=== PATIENT | female | born 2000 | race Caucasian/White ===

== ENCOUNTER 2021-05-11 15:59 | Day surgery (SDC) | payer MEDICAID ==
[2021-05-11] MEDS ORDERED: PROCHLORPERAZINE 10 MG/2 ML VIAL. IVP PRN (16:15)
[2021-05-11] MEDS ORDERED: CITRIC ACID/SODIUM CITRATE 30 ML SOLUTION. PO ONE (16:15)
[2021-05-11] MEDS ORDERED: FAMOTIDINE 20 MG/2 ML VIAL IVP ONE (16:15)
[2021-05-11] MEDS ORDERED: IV RINGERS,LACTATED 1000ML 1,000 ML IV SCH (16:15)
[2021-05-11] MEDS ORDERED: fentaNYL PF VIAL 100 MCG/2 ML VIAL IVP PRN ×2 (16:15)
[2021-05-11] MEDS ORDERED: HYDROmorphone 2 MG/ML VIAL IVP PRN (16:15)
[2021-05-11] MEDS ORDERED: METOCLOPRAMIDE HCL 10 MG/2 ML VIAL. IVP ONE (16:15)
[2021-05-11] MEDS ORDERED: MORPHINE SULFATE 2 MG/ML INJ. IVP PRN (16:15)
--- NOTE | 2021-05-11 16:56 | PDOC1 ---
[employer] H&P Date of Admission: Date of Admission: History of Present Illness: The pt is a 20y who presented to [facility] with sudden onset abd pain. The pt delivered by on 05/03/21 at [facility]. The pain began about 30 min prior to her. In the ER a CBC was found to have a nml WBC of 7.9 and Hgb of 12.5. A CT was performed revealing the followin. Enlarged uterus with thickened endometrial cavity due to the recent status of patient. There is increased blood flow along the right aspect of the uterine fundus which appears to extend into the endometrial cavity, concerning for retained products of conception and possible active extravasation. Correlate with pelvic exam findings and pelvic sonography. 2. Multiple ill-defined peripheral areas of hypodensity within both kidneys. This is not appear to be related to the timing of contrast administration. The possibility of an ascending urinary tract infection is not excluded. Correlate with urinalysis. The pt was transferred to [place] for suction D&C for the retained POC. PMH: Denies PSH: Denies Meds: none All: NKDA OBHx: TSVD x 1 SH: vap, no EtOH FH: noncontributory Medications: Meds: Current Medications Medications (Trade) Dose Ordered Sig/Maria E Route PRN Reason Start Time Stop Time Status Last Admin Dose Admin Metoclopramide HCl (Reglan Vial) 10 mg 1X ONCE IVP 05/11/21 16:15 05/11/21 16:17 DC 05/11/21 16:27 Famotidine (Pepcid Vial) 20 mg 1X ONCE IVP 05/11/21 16:15 05/11/21 16:17 DC 05/11/21 16:27 Citric Acid/ Sodium Citrate (Bicitra) 30 ml 1X ONCE PO 05/11/21 16:15 05/11/21 16:17 DC 05/11/21 16:27 Allergies: Coded Allergies: No Known Drug Allergies (Unverified , 05/11/21) Physical Exam: Vital Signs: Vital Signs Date Time Temp Pulse Resp B/P (MAP) Pulse Ox O2 Delivery O2 Flow Rate FiO2 05/11/21 16:27 98.4 77 13 122/83 98 Room Air 98.4 PE: GENERAL: No apparent distress. Alert and oriented. HEENT: Head normocephalic, atraumatic. NECK: Supple LUNGS: Clear to auscultation. HEART: RRR, S1, S2 present, pulses intact ABDOMEN: Soft, positive bowel sounds. EXTREMITIES: No cyanosis or edema. NEUROLOGIC: Normal speech, normal tone PSYCHIATRIC: Normal affect, normal mood. SKIN: No ulceration. Assessment & Plan: A/P 20y with retained POC 1.) Retained POC placed on scheduled for suction D&C 2.) Hgb 12.5 ELIUD VALLADARES MD May 11, 2021 16:56
[2021-05-11] MEDS ORDERED: fentaNYL PF VIAL 100 MCG/2 ML VIAL ONE (17:28)
[2021-05-11] MEDS ORDERED: DOXYCYCLINE HYCLATE 100 MG in IV DEXTROSE 5% 100ML 100 ML IV ONE (18:00)
[2021-05-11] MEDS ORDERED: OXYC1TAB15 PO (18:07)
[2021-05-11] MEDS ORDERED: IBUP-1060 PO (18:07)
--- NOTE | 2021-05-11 18:15 | PDOC4 ---
OPERATIVE NOTE: PreOp Dx: Retained POC PostOp Dx: same Procedure: Suction D&C Surgeon: Nicky Valladares Anesthesia: LMA EBL: 50 cc Fluids: 600 cc UOP: 15 cc Specimen: POC Complications: None ELIUD VALLADARES MD May 11, 2021 18:15
--- NOTE | 2021-05-11 18:40 | OP ---
DATE OF SURGERY: 05/11/2021 PREOPERATIVE DIAGNOSIS: Retained products of conception. POSTOPERATIVE DIAGNOSIS: Retained products of conception. PROCEDURE: Suction D and C. SURGEON: Jan Cardona MD ANESTHESIA: LMA. ESTIMATED BLOOD LOSS: 50 mL FLUIDS: 600 mL URINE OUTPUT: 15 mL SPECIMENS: Products of conception. COMPLICATIONS: None. DESCRIPTION OF PROCEDURE: The patient was taken to the operating room where LMA was placed without difficulty. The patient was prepped and draped in normal sterile fashion. A speculum was placed in the patient's vagina to visualize the cervix. A single tooth tenaculum was then placed on the anterior lip of the cervix. The uterus was sounded to approximately 8 cm. The cervix was sufficiently dilated to allow for a 7 cm curved suction curette to be placed. The curette was advanced to the fundus and suction was then activated. The curette was rotated until all products of conception were cleared. This occurred with only a couple of passes. With the third pass, only minimal blood was returning. At that point, sharp curetting was performed until gritty texture was felt in all 4 quadrants. Minimal bleeding was noted. At that point, an additional pass with the suction curette was then performed with no tissue returning. At that point, the procedure was terminated. The tenaculum was removed with minimal bleeding at the tenaculum site. Good hemostasis was noted. The patient was taken to the recovery room in stable condition, 200 mg of doxycycline were given during the procedure. LAURIE DR: Agueda TID: [id number]
[2021-05-11 18:45] VITALS: BP 133/88
[2021-05-11] MEDS ORDERED: oxyCODONE/APAP 5/325 1 TAB TABLET PO ONE (18:45)
--- NOTE | 2021-05-16 18:15 | PATHOLOGY ---
[facility] Accession Number: [id number] . 01 Material submitted: . product of conception - RETAINED PRODUCTS OF CONCEPTION . 01 Clinical history: . DILATION AND CURETTAGE . 02 Diagnosis: Uterine contents, D and C: - Segments of decidual tissue showing extensive hemorrhage, necrosis, and acute inflammation, and segments of endometrium showing chronic inflammation. (JPM:pathology supervisor; 05/16/2021) [facility] 05/16/2021 1222 Local . 02 Comment: No chorionic villi are identified. (JPM:pathology supervisor; 05/16/2021) . 02 Electronically signed: . Francis Pitt MD, Pathologist NPI- [id number] . 01 Gross description: . The specimen is received in formalin, labeled "Mango Tellez, retained products of conception". Received are multiple segments of pink-lincoln to pink-dillon soft tissue admixed with blood coagulum and spongiform tissue measuring 6.0 x 4.9 x 0.5 cm in aggregate dimensions. or embryonic tissue is not present. Vesicular structures are none present. The specimen is submitted representatively in cassettes A1 to A3.([facility]; 05/15/2021) [facility] 05/15/2021 1654 Local . 02 Pathologist provided ICD-10: O73.1 . 02 CPT . 634993 Specimen Comment: A courtesy copy of this report has been sent to [phone], [phone] Specimen Comment: [id number] Specimen Comment: Report sent to / DR SHAVER Specimen Comment: A duplicate report has been generated due to demographic updates. Performed at: 01 [facility] [address], [place] [id number] MD Hossein Marks MD Phone: [phone] Performed at: [address] [id number] MD Francis Pitt MD Phone: [phone]
== END 2021-05-11 19:00 | disposition home or self-care (01) ==
LOC: OPS 15:59
PROVIDERS: ATTEND Obstetrics & Gynecology
DX: O02.89 Other abnormal products of conception (principal); E78.00 Pure hypercholesterolemia, unspecified; E11.9 Type 2 diabetes mellitus without complications; G47.30 Sleep apnea, unspecified; E66.9 Obesity, unspecified; M19.90 Unspecified osteoarthritis, unspecified site; F41.9 Anxiety disorder, unspecified; F32.9 Major depressive disorder, single episode, unspecified; Z79.84 Long term (current) use of oral hypoglycemic drugs; Z79.899 Other long term (current) drug therapy; Z98.890 Other specified postprocedural states; Z88.0 Allergy status to penicillin
CPT/HCPCS: 59812; A4930; J2765; J3010; J3490; J7060; J7120; 88305; A4223; A4322